=== PATIENT | male | born 1970 | race Caucasian/White ===

== ENCOUNTER 2024-04-21 10:42 | Emergency (ER) | payer MEDICAID, OTHER ==
[~2024-04-21] VITALS: Ht 172.7 cm; Wt 54.4 kg
[2024-04-21 10:55] VITALS: BP 131/77; TEMP 98.1; O2SAT 96
== END 2024-04-21 12:14 | disposition home or self-care (01) ==
LOC: ER 10:54
DX: T16.2XXA Foreign body in left ear, initial encounter (principal); W44.8XXA Other foreign body entering into or through a natural orifice, initial encounter; Y93.89 Activity, other specified; Y92.89 Other specified places as the place of occurrence of the external cause; Y99.8 Other external cause status